=== PATIENT | male | born 1960 | race Caucasian/White ===

== ENCOUNTER 2023-11-28 09:13 | Emergency (ER) | payer OTHER ==
[2023-11-28 09:30] VITALS: TEMP 97.8
[2023-11-28] MEDS ORDERED: TORAdol 30 mg Injection ONE (09:41)
[2023-11-28] MEDS ORDERED: Sodium Chloride 0.9% 1000 ML 1,000 ML ONE (09:41)
--- NOTE | 2023-11-28 09:42 | ERPHSYRPT ---
- History of Present Illness Time Seen by Provider: 11/28/23 09:35 Source: patient Exam Limitations: no limitations Patient Subjective Stated Complaint: PT HERE FOR FLANK PAIN ,TESTICULAR ABD PAIN SINCE MONDAY, HE WAS RECENTLY DX WITH KIDNEY STONES, Triage Nursing Assessment: PT ALERT, WALKED IN, RESP EASY,SKIN W.D.P, ABD ROUND AND SOFT, MOVES ALL EXT WELL Physician History: 63-year-old male presents to emergency department for evaluation of left-sided flank pain. Pain started 2 days ago. Patient states he was at [facility] approximately 2 weeks ago for the same. Patient was diagnosed with kidney stones and he believes that he is developing a recurrence of his obstructive kidney stone. Pain described as an ache of the left flank that radiates down to his testicle. No trauma no fever. No hematuria. Symptoms are constant. Symptoms are moderate in intensity. No specific worsening or improving factors. Pain is similar to his previous episode of nephrolithiasis. No associated chest pain or shortness of breath. No nausea vomiting or diaphoresis. Patient voices no other complaints or concerns at this time. Portions of this note were created with voice recognition technology. There may be grammatical, spelling, punctuation or sound alike errors Timing/Duration: day(s) (2 days ago) Severity: moderate Modifying Factors: Improves With: other Associated Symptoms: denies symptoms Allergies/Adverse Reactions: pramipexole [From Mirapex] Allergy (Verified 11/28/23 09:20) Home Medications: Atorvastatin Calcium 40 mg PO DAILY 11/28/23 [History] Gabapentin [Neurontin ] 800 mg PO TID 11/28/23 [History] Levothyroxine Sodium 1 ea DAILY 11/28/23 [History] Metformin HCl 500 mg [Glucophage 500 MG] 1,000 mg PO DAILY 11/28/23 [History] Hx Influenza Vaccination/Date Given: No Hx Pneumococcal Vaccination/Date Given: No Immunizations Up to Date: Yes Travel Risk - International Travel Have you traveled outside of the country in past 3 weeks: No - Emerging Infectious Disease Are you exhibiting symptoms associated with any current EIDs: Yes Symptoms: Abdominal Pain - Review of Systems Constitutional: No Symptoms, No Fever, No Chills Eyes: No Symptoms Ears, Nose, & Throat: No Symptoms Respiratory: No Symptoms, No Cough, No Dyspnea Cardiac: No Symptoms, No Chest Pain, No Edema, No Syncope Abdominal/Gastrointestinal: No Symptoms, No Abdominal Pain, No Nausea, No Vomiting, No Diarrhea Genitourinary Symptoms: No Symptoms, No Dysuria Musculoskeletal: No Symptoms, No Back Pain, No Neck Pain Skin: No Symptoms, No Rash Neurological: No Symptoms, No Dizziness, No Focal Weakness, No Sensory Changes Psychological: No Symptoms Endocrine: No Symptoms Hematologic/Lymphatic: No Symptoms Immunological/Allergic: No Symptoms All Other Systems: Reviewed and Negative - Past Medical History Pertinent Past Medical History: No Other Medical History: KIDNEY STONE 2023 - Past Surgical History Past Surgical History: Yes Musculoskeletal: Amputation, Orthopedic Surgery Other Surgical History: FINGERS - Social History Smoking Status: Former smoker Exposure to second hand smoke: No Drug Use: none - Nursing Vital Signs Nursing Vital Signs: Initial Vital Signs Temperature 97.8 F 11/28/23 09:29 Pulse Rate 82 11/28/23 09:29 Respiratory Rate 18 11/28/23 09:29 Blood Pressure 147/52 11/28/23 09:29 O2 Sat by Pulse Oximetry 93 L 11/28/23 09:29 Pain Scale Pain Intensity [] 8 Pain Intensity 0 - Physical Exam General Appearance: no apparent distress, alert Eye Exam: PERRL/EOMI, eyes nml inspection Ears, Nose, Throat Exam: normal ENT inspection, TMs normal, pharynx normal, moist mucous membranes Neck Exam: normal inspection, non-tender, supple, full range of motion Respiratory Exam: normal breath sounds, lungs clear, No respiratory distress Cardiovascular Exam: regular rate/rhythm, normal heart sounds, normal peripheral pulses Gastrointestinal/Abdomen Exam: soft, normal bowel sounds, other (Left CVA tenderness.), No tenderness, No mass Back Exam: normal inspection, normal range of motion, No CVA tenderness, No vertebral tenderness Extremity Exam: normal inspection, normal range of motion, pelvis stable Neurologic Exam: alert, oriented x 3, cooperative, normal mood/affect, sensation nml, No motor deficits Skin Exam: normal color, warm, dry, No rash Lymphatic Exam: No adenopathy SpO2 Interpretation: normal SpO2: 93 O2 Delivery: Room Air - Course Nursing assessment & vital signs reviewed: Yes - CT Exams Abdomen/Pelvis CT Interpretation: Tele-radiologist Report Ordered Tests: Active Orders 24 hr Category Date Time Status IV Insertion STAT Care 11/28/23 09:37 Active ABDOMEN AND PELVIS W/0 CONTRAS [CT] Stat Exams 11/28/23 09:38 Completed CBC W DIFF Stat Lab 11/28/23 09:45 Completed CMP Stat Lab 11/28/23 09:45 Completed CULTURE,URINE Stat Lab 11/28/23 09:44 Received UA W/RFX UR CULTURE Stat Lab 11/28/23 09:44 Completed Medication Summary Generic Name Dose Route Start Last Admin Trade Name Rohan PRN Reason Stop Dose Admin Sodium Chloride 1,000 mls @ 100 mls/hr 11/28/23 09:45 11/28/23 09:43 Sodium Chloride 0.9% 1000 Ml IV 12/28/23 09:44 100 mls/hr .Q10H DUNG Administration Discontinued Medications Generic Name Dose Route Start Last Admin Trade Name Dipakq PRN Reason Stop Dose Admin Ketorolac Tromethamine 30 mg 11/28/23 09:37 11/28/23 09:43 Ketorolac Tromethamine 30 Mg/Ml Inj IV 11/28/23 09:38 30 mg STAT ONE Administration Ketorolac Tromethamine Confirm 11/28/23 09:41 Ketorolac Tromethamine 30 Mg/Ml Inj Administered 11/28/23 09:42 Dose 30 mg .ROUTE .STAnaergia-MED ONE Lab/Rad Data: Laboratory Result Diagrams 11/28/23 09:45 11/28/23 09:45 Laboratory Results 11/28/23 11/28/23 11/28/23 Range/Units 09:45 09:45 09:44 WBC 11.8 H (4.0-10.5) x10^3/uL RBC 4.93 (4.1-5.6) x10^6/uL Hgb 15.0 (12.5-18.0) g/dL Hct 45.1 (42-50) % MCV 91.5 (78-100) fL MCH 30.4 (26-32) pg MCHC 33.3 (32-36) g/dL RDW 12.2 (11.5-14.0) % Plt Count 224 (150-450) x10^3/uL MPV 11.2 H (7.5-11.0) fL Gran % 75.8 H (36.0-66.0) % Immature Gran % (Auto) 0.4 (0.00-0.4) % Nucleat RBC Rel Count 0.0 (0.00-0.1) % Eos # (Auto) 0.34 (0-0.5) x10^3/uL Immature Gran # (Auto) 0.05 H (0.00-0.03) x10^3u/L Absolute Lymphs (auto) 1.39 (1.0-4.6) x10^3/uL Absolute Monos (auto) 1.00 (0.0-1.3) x10^3/uL Absolute Nucleated RBC 0.00 (0.00-0.01) x10^3u/L Lymphocytes % 11.8 L (24.0-44.0) % Monocytes % 8.5 (0.0-12.0) % Eosinophils % 2.9 (0.00-5.0) % Basophils % 0.6 (0.0-0.4) % Absolute Granulocytes 8.93 H (1.4-6.9) x10^3/uL Basophils # 0.07 (0-0.4) x10^3/uL Sodium 137 (135-145) mmol/L Potassium 4.4 (3.5-5.1) mmol/L Chloride 103 (98-107) mmol/L Carbon Dioxide 29 (22-30) mmol/L Anion Gap 9.2 (5-15) MEQ/L BUN 19 (9-20) mg/dL Creatinine 1.80 H (0.66-1.25) mg/dL Estimated GFR 42.3 ML/MIN Glucose 132 H (74-106) mg/dL Calcium 10.5 H (8.4-10.2) mg/dL Total Bilirubin 1.20 (0.2-1.3) mg/dL AST 26 (17-59) U/L ALT 8 (0-50) U/L Alkaline Phosphatase 76 (38-126) U/L Serum Total Protein 7.6 (6.3-8.2) g/dL Albumin 4.3 (3.5-5.0) g/dL Urine Color Yellow (Yellow) Urine Appearance Clear (Clear) Urine pH 6.0 (4.6-8.0) Ur Specific [place] 1.020 (1.005-1.030) Urine Protein Trace A (Negative) Urine Glucose (UA) Negative (Negative) mg/dL Urine Ketones Trace A (Negative) Urine Blood NHT (Negative) Urine Nitrite Negative (Negative) Urine Bilirubin Negative (Negative) Urine Urobilinogen 1.0 A (0.2) mg/dL Ur Leukocyte Esterase Negative (Negative) U Hyaline Cast (Auto) NONE SEEN (0-2) /LPF Urine Microscopic RBC 11-20 A (0-5) /HPF Urine Microscopic WBC 0-2 (0-5) /HPF Ur Epithelial Cells None Seen (None Seen) /HPF Urine Bacteria None Seen (None Seen) /HPF Urine Culture Reflexed YES (NO) - Progress Progress: improved Progress Note: 63-year-old male with a history of kidney stones presents to our ED with acute onset flank pain 2 days ago. Physical exam reveals left-sided CVA. Laboratory workup reveals doubling of his creatinine at 1.8. Microscopic hematuria observed on urinalysis. CT scan reveals a partially obstructing 8 mm calculus. There is hydronephrosis and bilateral nephrolithiasis. In light of his worsening creatinine we will transfer patient for ureteral decompression. Plan of care discussed with patient. Patient agrees to transfer for further evaluation and treatment. Portions of this note were created with voice recognition technology. There may be grammatical, spelling, punctuation or sound alike errors Complexity problem addressed is moderate acute complicated. No critical care time. Complex of data reviewed and analyzed is extensive test ordered test reviewed results analyzed and correlated clinically with history and physical examination. Management discussed with receiving hospital/transfer center. Risk complication at risk morbidity/mortality patient management is high. Malorie ent requires transfer/transfer to higher level of care. Vital stable. Time spent to transfer patient approximately 30 minutes. Plan of care established for shared decision making. No social determinants of health present impede follow-up. Portions of this note were created with voice recognition technology. There may be grammatical, spelling, punctuation or sound alike errors I [facility] I spoke to Dr. Kapadia at 11:43 AM. He advised to consult with hospitalist for admission. He will evaluate patient upon transfer 11/28/23 11:01 I spoke to hospitalist at [facility] at 12:27 PM. Patient was accepted by at 12:27 PM 11/28/23 11:45 11/28/23 12:28 Counseled pt/family regarding: lab results, diagnosis, rad results - Departure Departure Disposition: Transfer Clinical Impression: Acute renal injury, Microscopic hematuria, Ureterolithiasis, Hydronephrosis, Bilateral nephrolithiasis Condition: Stable Critical Care Time: No Referrals: DOCTOR,NO FAMILY [Primary Care Provider] - Follow up/PCP as directed RUTHIE CHAVEZ MD [ACTIVE STAFF] - Follow up/PCP as directed Additional Instructions: Discharge/Care Plan RUTHIE TORIBIO was seen on 11/28/23 in the Emergency Room. The patient was counseled regarding Diagnosis,Lab results, Imaging studies, need for follow up and when to return to the Emergency Room. Prescriptions given: Discharge Note I have spoken with the patient and/or caregivers. I have explained the patient's condition, diagnosis and treatment plan based on the information available to me at this time. I have answered the patient's and/or caregiver's questions and addressed any concerns. The patient and/or caregivers have as good understanding of the patient's diagnosis, condition and treatment plan as can be expected at this point. The vital signs have been stable. The patient's condition is stable and appropriate for discharge from the emergency department. The patient will pursue further outpatient evaluation with the primary care physician or other designated or consulting physician as outlined in the discharge instructions. The patient and/or caregivers are agreeable to this plan of care and follow-up instructions have been explained in detail. The patient and/or caregivers have received these instruction. The patient/and or caregivers are aware that any significant change in condition or worsening of symptoms should prompt an immediate return to this or the closest emergency department or call 911.
[2023-11-28] MEDS: Sodium Chloride 0.9% 1000 ML 1,000 ML IV SCH (09:43)
[2023-11-28] MEDS: TORAdol 30 mg Injection IV ONE (09:43)
[2023-11-28 09:52] LABS: Appearance Clear (Clear); Bacteria None Seen /HPF (None Seen); Bilirubin Negative (Negative); Blood NHT (Negative); Epithelial Cells None Seen /HPF (None Seen); Glucose, Urine Negative (Negative); Hyaline Casts NONE SEEN /LPF (0-2); Ketones Trace (Negative); Leukocyte Esterase Negative (Negative); Nitrite Negative (Negative); Protein,Urine Dip Trace (Negative); WBC 0-2 /HPF (0-5)
[2023-11-28 09:54] LABS: Absolute Neutrophil Ct (ANC) 8.93 x10^3/uL (1.4-6.9); BASOPHIL % 0.6 % (0.0-0.4); Basophil (Absolute #) 0.07 x10^3/uL (0-0.4); Eosinophil % 2.9 % (0.00-5.0); Eosinophil (Absolute #) 0.34 x10^3/uL (0-0.5); Hematocrit 45.1 % (42-50); IMMATURE GRAN # 0.05 x10^3u/L (0.00-0.03); IMMATURE GRAN % 0.4 % (0.00-0.4); Lymphocyte (Absolute #) 1.39 x10^3/uL (1.0-4.6); Lymphocytes % 11.8 % (24.0-44.0); Mean Cell Volume 91.5 fL (78-100); Mean Corpuscular Hemoglobin 30.4 pg (26-32); Mean Corpuscular Hgb Concent. 33.3 g/dL (32-36); Mean Platelet Volume 11.2 fL (7.5-11.0); Monocytes % 8.5 % (0.0-12.0); Neutrophil % 75.8 % (36.0-66.0); Platelet Count 224 x10^3/uL (150-450); Red Blood Count 4.93 x10^6/uL (4.1-5.6); Red Cell Distribution Width 12.2 % (11.5-14.0); White Blood Count 11.8 x10^3/uL (4.0-10.5)
[2023-11-28 09:59] LABS: ADD URINE CULTURE? YES (NO)
[2023-11-28 10:06] LABS: ALBUMIN 4.3 g/dL (3.5-5.0); ANION GAP 9.2 MEQ/L (5-15); BILIRUBIN,TOTAL 1.2 mg/dL (0.2-1.3); Calcium 10.5 mg/dL (8.4-10.2); Creatinine 1 1.8 mg/dL (0.66-1.25); EST GLOMERULAR FILTRATION RATE 42.3 ML/MIN; Potassium 4.4 mmol/L (3.5-5.1); Total Protein 7.6 g/dL (6.3-8.2)
--- NOTE | 2023-11-28 10:30 | XRAY ---
Indication: Flank pain. History kidney stones. Multiple contiguous axial images obtained through the abdomen and pelvis without contrast using renal stone protocol. Comparison: None Lung bases clear. Heart not enlarged. Proximal left ureter demonstrates 8 mm calculus, approximately L3 level. Proximal left ureter is prominent along with mild hydronephrosis consistent with partial obstructive uropathy. Additional micro-calculus in each kidney. No free fluid/air. Noncontrasted stomach and bowel loops appear nonobstructed with normal appendix. Remaining liver, gallbladder, pancreas, spleen, adrenal glands, kidneys, ureters, and bladder are unremarkable for noncontrast exam. Mild scattered aortoiliac calcifications without AAA. Osseous structures intact with mild degenerative changes throughout the thoracolumbar spine. Impression: 1. 8 mm proximal left ureter calculus producing partial obstruction as detailed. Additional micro-calculus in each kidney. 2. Chronic findings including arteriosclerotic disease and multilevel degenerative spondylosis.
[2023-11-28 15:24] VITALS: O2SAT 96
[2023-11-28] MEDS ORDERED: MORPHINE SULFATE 4 MG INJ ONE (16:06)
[2023-11-28] MEDS: MORPHINE SULFATE 4 MG INJ IV ONE (16:11)
[2023-11-28 17:58] VITALS: BP 140/81; PULSE 70; RESP 18
== END 2023-11-28 18:09 | disposition short-term general hospital (02) ==
LOC: ED 09:13
DX: N13.2 Hydronephrosis with renal and ureteral calculous obstruction (principal); N17.9 Acute kidney failure, unspecified; R31.29 Other microscopic hematuria; R10.9 Unspecified abdominal pain; Z87.442 Personal history of urinary calculi; Z79.84 Long term (current) use of oral hypoglycemic drugs; Z79.899 Other long term (current) drug therapy
CPT/HCPCS: 36000; 36415; 74176; 80053; 81001; 85025; 87086; 96360; 96361; 96374; 96375; 99285; J1885; J2270